=== PATIENT | male | born 1960 | race Caucasian/White ===

== ENCOUNTER → 2017-08-08 | Outpatient (CLI) | payer OTHER ==
--- NOTE | 2017-08-08 16:45 | RADIOLOGY REPORT PS360 ---
[id number] VIEWS HISTORY: LT SHOULDER PAIN ORDERING PHYSICIAN: Anette Jenkins MD PATIENT AGE: 57 years COMPARISON: None FINDINGS: Left humeral prosthesis is present in good position. Mild hypertrophic changes are present at the proximal humerus. There is some mild sclerosis of the glenoid fossa. No acute fracture or dislocation. There is mild subacromial stenosis. There is also mild thickening of the proximal shaft of the humerus which may be due to old fracture. Please correlate clinically. No evidence of loosening of the prosthesis. IMPRESSION: Status post right humeral prosthesis placement with good alignment and mild osteoarthritic change
== END ==
LOC: RAD 15:15
DX: M25.512 Pain in left shoulder (principal)